=== PATIENT | male | born 1995 | race Caucasian/White ===

== ENCOUNTER 2016-10-15 19:32 | Emergency (ER) | payer MEDICAID ==
[2016-10-15 19:53] VITALS: PULSE 82; RESP 16
[2016-10-15] MEDS ORDERED: KETOROLAC 30 MG/1 ML SDV IVP ONE (20:30)
[2016-10-15] MEDS ORDERED: NS 1,000 ML IV ONE (20:31)
--- NOTE | 2016-10-15 20:33 | EDPHY ---
H & P Stated Complaint: L ABD PAIN Time Seen by Provider: 10/15/16 20:01 HPI/ROS: CHIEF COMPLAINT: Abdominal pain HISTORY OF PRESENT ILLNESS: This is a generally healthy 21-year-old male who presents with 3 days of intermittent left-sided abdominal pain. The pain lasts for hours at a time. He cannot identify anything that makes it better or makes it worse. He drank aloe vera juice today, with no relief. Pain is primarily left-sided in both the upper and the lower left quadrants, extending into the suprapubic region. He has not had testicular pain. He has not been aware of flank or back pain. His been moving his bowels daily but feels as if his bowel movements have been smaller than usual. No blood in his stool. He denies nausea or vomiting. He has not been aware of fever. He has had his appendix removed. REVIEW OF SYSTEMS: A ten point review of systems was performed and is negative with the exception of the items mentioned in the HPI. - Personal History Current Tetanus/Diphtheria Vaccine: Unsure - Medical/Surgical History Hx Asthma: No Hx Chronic Respiratory Disease: No Hx Diabetes: No Hx Cardiac Disease: No Hx Renal Disease: No Hx Cirrhosis: No Hx Alcoholism: No Hx HIV/AIDS: No Hx Splenectomy or Spleen Trauma: No Other PMH: APPY - Social History Smoking Status: Current every day smoker Additional Social History: He works at [employer]. He is new to this area. - Physical Exam Exam: General Appearance: Alert. Vital signs reviewed. He appears uncomfortable and is holding the left side of his abdomen when I arrive in the room. Blood pressure 160/84 at triage. Eyes: Pupils equal and round, no conjunctival injection, no discharge. Anicteric. ENT, Mouth: Mucous membranes are moist, no oropharyngeal erythema or edema. Neck: No lymphadenopathy, supple. Respiratory: Lungs are clear to auscultation; no wheezes, rales, or rhonchi. Cardiovascular: Regular rate and rhythm; no murmur, rub, or gallop. Gastrointestinal: Abdomen is soft and nontender, no masses or organomegaly, bowel sounds normal. Skin: Warm and dry, no rashes on exposed skin, normal color. Back: Nontender to palpation over the thoracolumbar spine. No CVAT. Extremities: No lower extremity edema, no calf tenderness or swelling. Neurological: Alert and oriented. Moving all four extremities easily and equally. Psychiatric: Normal affect. Constitutional: Initial Vital Signs Temperature (C) 37.2 C 10/15/16 19:35 Heart Rate 82 10/15/16 19:35 Respiratory Rate 16 10/15/16 19:35 Blood Pressure 160/84 H 10/15/16 19:35 O2 Sat (%) 98 10/15/16 19:35 O2 Delivery Mode Room Air Allergies/Adverse Reactions: No Known Allergies Allergy (Unverified 10/15/16 19:46) Home Medications: Medication Instructions Recorded Tamsulosin HCl [Flomax] 0.4 mg PO DAILY #5 cap 10/15/16 Medical Decision Making ED Course/Re-evaluation: He was given 1 L IV fluid, normal saline. He also received Toradol 15 mg IV. His re-examined at 9:30 p.m., at which time he was pain free. His abdomen is soft and nontender. Urine is positive for blood. No evidence of infection. Renal function normal. It was my impression that his pain might be caused by kidney stone. In further discussion with him he reports that he had a kidney stone 3 years ago. This information was not elicited during my initial interview. We discussed doing a CT scan and, at this point in time, he does not want to proceed with this study. He understands that he could have continued pain. We reviewed the danger signs that should prompt him to return to the emergency department. He was given a dose of Flomax and a prescription for Flomax. He was provided with a small quantity of Vicodin as a take-home pack, he did not want more than a few pills. He was given a strainer and instructions. He was given referrals for primary care and for urologic care. Differential Diagnosis: I considered a differential diagnosis that includes but is not limited to ureterolithiasis, pyelonephritis, urinary tract infection, musculoskeletal pain , and gastroenteritis. - Data Points Laboratory Results: Laboratory Results 10/15/16 20:45 10/15/16 20:45 Medications Given: Discontinued Medications Hydrocodone Bitart/Acetaminophen ([place] 5/325mg Prepack#6) 1 btl TAKEHOME EDNOW ONE Stop: 10/15/16 22:02 Last Admin: 10/15/16 22:24 Dose: 1 btl Sodium Chloride (Ns) 1,000 mls @ 0 mls/hr IV EDNOW ONE; Wide Open PRN Reason: Protocol Stop: 10/15/16 20:32 Last Admin: 10/15/16 20:38 Dose: 1,000 mls Ketorolac Tromethamine (Toradol) 15 mg IVP EDNOW ONE Stop: 10/15/16 20:31 Last Admin: 10/15/16 20:39 Dose: 15 mg Tamsulosin HCl (Flomax) 0.4 mg PO EDNOW ONE Stop: 10/15/16 22:02 Last Admin: 10/15/16 22:23 Dose: 0.4 mg Departure - Departure Disposition: Home, Routine, Self-Care Clinical Impression: Renal colic on left side Condition: Good Instructions: Kidney Stones (ED), How to Strain Your Urine (ED) Additional Instructions: I think that you have a kidney stone that you are trying to pass. Take the flomax daily. Use the [place] for severe pain if needed. You can take it every four hours. Take ibuprofen (any brand) 600 mg every 6-8 hours (with food) for pain. I recommend taking this on a regular basis for the next couple of days. Strain your urine. [facility] referring [facility] for [facility] and to Dr. Rueda , urologist, for care relating to kidney stones. Referrals: [facility] [Outside] - As per Instructions Alex Rueda MD [Medical Doctor] - As per Instructions Prescriptions: Tamsulosin HCl [Flomax] 0.4 mg PO DAILY #5 cap
[2016-10-15 20:54] LABS: % IMMATURE GRANULYOCYTES 0.1 % (0.0-1.1); ABSOLUTE IMMATURE GRANULOCYTES 0.01 10^3/uL (0.00-0.10); ADD DIFF? NO; ADD MORPH? NO; ADD SCAN? NO; ATYPICAL LYMPHOCYTE FLAG 30 (0-99); FRAGMENT RBC FLAG 0 (0-99); HEMATOCRIT 39.7 % (40.0-51.0); HEMOGLOBIN 13.9 g/dL (13.7-17.5); LEFT SHIFT FLG 0 (0-99); LIPEMIA HEMOLYSIS FLAG 90 (0-99); MEAN CELL HEMOGLOBIN 31.8 pg (27.9-34.1); MEAN CELL VOLUME 90.8 fL (81.5-99.8); MEAN PLATELET VOLUME 9.9 fL (8.7-11.7); PLATELET CLUMPS FLAG 0 (0-99); PLATELET COUNT 266 10^3/uL (150-400); RED BLOOD CELL COUNT 4.37 10^6/uL (4.40-6.38); RED CELL DISTRIBUTION WIDTH 11.7 % (11.5-15.2)
[2016-10-15 21:06] LABS: ANION GAP 14 mEq/L (8-16); CALCIUM 9.3 mg/dL (8.5-10.4); CARBON DIOXIDE 21 mEq/l (22-31); CHLORIDE 107 mEq/L (97-110); CREATININE 0.8 mg/dL (0.7-1.3); GLOMERULAR FILTRATION RATE > 60; GLUCOSE 95 mg/dL (70-100); POTASSIUM 3.8 mEq/L (3.5-5.2); SODIUM 142 mEq/L (134-144)
[2016-10-15 21:31] LABS: COLOR YELLOW; LEUKOCYTE ESTERASE,URINE NEGATIVE (NEGATIVE); NITRITE,URINE NEGATIVE (NEGATIVE); PH,URINE 6.5 (5.0-7.5)
[2016-10-15 21:33] VITALS: BP 120/65; TEMP 98.6; O2SAT 97
[2016-10-15 21:43] LABS: MUCUS 1+ /lpf (NONE-1+); WBC,URINE 0-1 /hpf (0-3)
[2016-10-15 21:44] LABS: BACTERIA TRACE /hpf (NONE SEEN)
[2016-10-15] MEDS ORDERED: HYDROCOD/APAP 5/325 PREPACK#6 BTL TAKEHOME ONE (22:01)
[2016-10-15] MEDS ORDERED: TAMSULOSIN HCL 0.4 MG CAP PO ONE (22:01)
== END 2016-10-15 22:27 | disposition home or self-care (01) ==
LOC: CED 19:32
DX: N23 Unspecified renal colic (principal); F17.200 Nicotine dependence, unspecified, uncomplicated; E86.9 Volume depletion, unspecified
CPT/HCPCS: 80048-PO; 81003-PO; 81015-PO; 85025-PO; 96374; J1885